=== PATIENT | female | born 1970 | race African-American/Black ===

== ENCOUNTER 2016-07-23 17:36 | Emergency (ER) | payer OTHER ==
[2016-07-23] MEDS ORDERED: IBUPROFEN 800 MG TABLET PO ONE (17:54)
--- NOTE | 2016-07-23 17:54 | ER Document Report ---
ED Medical Screen (RME) - General Stated Complaint: FACE PAIN Mode of Arrival: Ambulatory Information source: Patient Notes: Patient complains of headache, facial pain, generalized body aches. Patient reports symptoms 3 days. She does report cough and sneeze. hx: None I have greeted and performed a rapid initial assessment of this patient. A comprehensive ED assessment and evaluation of the patient, analysis of test results and completion of the medical decision making process will be conducted by additional ED providers. - Related Data Allergies/Adverse Reactions: acetaminophen [From Percocet] Allergy (Verified 12/21/11 18:41) oxycodone [Oxycodone] Allergy (Verified 12/21/11 18:41) oxycodone HCl [From Percocet] Allergy (Verified 12/21/11 18:41) Past Medical History GI Medical History: Reports: Hx Ulcer - stomach Past Surgical History: Reports: Hx Tubal Ligation - Immunizations Hx Diphtheria, Pertussis, Tetanus Vaccination: Yes Physical Exam - Neurological Cognition: Normal [place] Coma Scale Eye Opening: Spontaneous Kya Coma Scale Verbal: Oriented Kya Coma Scale Motor: Obeys Commands Kya Coma Scale Total: 15
--- NOTE | 2016-07-23 19:00 | ER Document Report ---
ED Flu Like - General Chief Complaint: Sinus Pain Stated Complaint: FACE PAIN Mode of Arrival: Ambulatory Notes: The patient is a 45-year-old female who presents with sinus congestion, frontal headache, subjective fevers and rhinorrhea for the past several days. 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 Denies cough, shortness of breath, chest pain, rash, neck stiffness, neuro symptoms or recent travel. TRAVEL OUTSIDE OF THE [place] IN LAST 30 DAYS: No - Related Data Allergies/Adverse Reactions: acetaminophen [From Percocet] Allergy (Verified 07/23/16 17:55) oxycodone [Oxycodone] Allergy (Verified 07/23/16 17:55) oxycodone HCl [From Percocet] Allergy (Verified 07/23/16 17:55) Past Medical History - General Information source: Patient - Social History Smoking Status: Current Every Day Smoker Chew tobacco use (# tins/day): No Frequency of alcohol use: None Drug Abuse: None Family History: Reviewed & Not Pertinent Patient has suicidal ideation: No Patient has homicidal ideation: No Renal/ Medical History: Denies: Hx Peritoneal Dialysis GI Medical History: Reports: Hx Ulcer - stomach Past Surgical History: Reports: Hx Tubal Ligation - Immunizations Hx Diphtheria, Pertussis, Tetanus Vaccination: Yes Review of Systems - Review of Systems Notes: REVIEW OF SYSTEMS: CONSTITUTIONAL: +subjective fevers, -chills EENT: -eye pain, -difficulty swallowing, +nasal congestion CARDIOVASCULAR: -chest pain, -syncope. RESPIRATORY: +cough, -SOB GASTROINTESTINAL: -abdominal pain, -nausea, -vomiting, -diarrhea GENITOURINARY: -dysuria, -hematuria MUSCULOSKELETAL: -back pain, -neck pain SKIN: -rash or skin lesions. HEMATOLOGIC: -easy bruising or bleeding. LYMPHATIC: -swollen, enlarged glands. NEUROLOGICAL: -altered mental status or loss of consciousness, +headache, - neurologic symptoms PSYCHIATRIC: -anxiety, -depression. ALL OTHER SYSTEMS REVIEWED AND NEGATIVE. Physical Exam - Vital signs Vitals: Temp Pulse Resp BP Pulse Ox 98.7 F 94 15 133/73 H 98 07/23/16 17:56 07/23/16 17:56 07/23/16 17:56 07/23/16 17:56 07/23/16 17:56 - Notes Notes: PHYSICAL EXAMINATION: GENERAL: Well-appearing, well-nourished and in no acute distress. HEAD: Atraumatic, normocephalic. EYES: Pupils equal round and reactive to light, extraocular movements intact, sclera anicteric, conjunctiva are normal. ENT: B/L maxillary and sinus tenderness, swollen nasal turbinates, nares patent , oropharynx clear without exudates. Moist mucous membranes. NECK: Normal range of motion, supple without lymphadenopathy LUNGS: Breath sounds clear to auscultation bilaterally and equal. No wheezes rales or rhonchi. HEART: Regular rate and rhythm without murmurs ABDOMEN: Soft, nontender, normoactive bowel sounds. No guarding, no rebound. No masses appreciated. EXTREMITIES: Normal range of motion, no pitting or edema. No cyanosis. NEUROLOGICAL: Cranial nerves grossly intact. Normal speech, normal gait. Normal sensory, motor, and reflex exams. PSYCH: Normal mood, normal affect. SKIN: Warm, Dry, normal turgor, no rashes or lesions noted. Course - Re-evaluation Re-evalutation: Patient appears very well. No respiratory distress and no fevers. Instructed patient about symptomatic treatment of her sinus congestion and follow-up with primary care physician. - Vital Signs Vital signs: Temp Pulse Resp BP Pulse Ox 98.7 F 94 15 133/73 H 98 07/23/16 17:56 07/23/16 17:56 07/23/16 17:56 07/23/16 17:56 07/23/16 17:56 Discharge - Discharge Clinical Impression: Sinus congestion URI (upper respiratory infection) Qualifiers: URI type: unspecified URI Qualified Code(s): J06.9 - Acute upper respiratory infection, unspecified Condition: Good Disposition: HOME, SELF-CARE Additional Instructions: Use Flonase and take Zyrtec to help out with your sinus congestion. Also use a sinus rinse, such as a NettiPot. Tylenol and Motrin for any fever or body aches. Get the flu shot. Sinusitis You have sinusitis, an infection of the sinus cavities of the face. The sinuses are air-filled chambers which open into the inside of the nose. Bacteria and pus fill a sinus, causing pain, drainage, and fever. Sinusitis is treated with antibiotics. Often, expectorants (to thin the sinus mucous) or decongestants (to reduce swelling) are prescribed as well. Healing requires seven to 10 days. Avoid chemical fumes, pollens, dusts, and smoke (especially cigarette smoke ). Keep the air humidified in your bedroom and work area and take plenty of liquids by mouth. This condition can be serious if the infection spreads. If your symptoms worsen, or if you develop severe headache, high fever, stiff neck, or a rash, you must call the doctor or return for re-evaluation. Prescriptions: Fluticasone Propionate [Flonase Nasal Bernie 50 Mcg/Bernie 16 gm] 2 sprays NASL Q12 #1 inhaler
[2016-07-23 20:43] VITALS: BP 128/72
== END 2016-07-23 19:52 | disposition home or self-care (01) ==
LOC: ER 17:36
DX: J06.9 Acute upper respiratory infection, unspecified (principal); R68.89 Other general symptoms and signs; R51 Headache; R50.9 Fever, unspecified; F17.200 Nicotine dependence, unspecified, uncomplicated; Z88.6 Allergy status to analgesic agent; Z98.51 Tubal ligation status
CPT/HCPCS: 99283

== ENCOUNTER 2016-11-28 12:30 | Emergency (ER) | payer OTHER ==
[2016-11-28] MEDS ORDERED: IBUPROFEN 600 MG TABLET PO ONE (15:24)
--- NOTE | 2016-11-28 15:27 | ER Document Report ---
ED Skin Rash/Insect Bite/Abscs - General Chief Complaint: Insect Bite Stated Complaint: WASP STING/HAND PAIN, SWELLING Time Seen by Provider: 11/28/16 15:14 Mode of Arrival: Ambulatory Information source: Patient Notes: 36-year-old female presents to ED for wasp sting to her left hand on Monday. She states she took [id number] allergy medicine on Monday but her hand continued to swell since Monday. She states she used some ice a little bit Monday but has not used it since then. She states she taken some ibuprofen off and on but not on a regular basis. Patient denies any shortness of breath difficulty breathing throat swelling or difficulty swallowing. TRAVEL OUTSIDE OF THE [place] IN LAST 30 DAYS: No - HPI Patient complains to provider of: Insect sting Onset: Last week Onset/Duration: Gradual, Persistent Quality of pain: Pressure Severity: Moderate Pain Level: 4 Skin Character: Erythema, Swelling, Other - wasp thing to left hand Identify cause: Yes Exacerbated by: Denies Relieved by: Denies Similar symptoms previously: No Recently seen / treated by doctor: No - Related Data Allergies/Adverse Reactions: acetaminophen [From Percocet] Allergy (Verified 07/23/16 17:55) oxycodone [Oxycodone] Allergy (Verified 07/23/16 17:55) oxycodone HCl [From Percocet] Allergy (Verified 07/23/16 17:55) Past Medical History - General Information source: Patient - Social History Smoking Status: Current Every Day Smoker Cigarette use (# per day): Yes - 14 or 15 cigarettes a day Chew tobacco use (# tins/day): No Smoking Education Provided: Yes - Less than 2 minutes Frequency of alcohol use: None Drug Abuse: None Occupation: accounts payable supervisor on third shift at the [employer] Lives with: Family Family History: Arthritis, CAD, COPD, CVA, DM, Hyperlipidemia, Hypertension, Malignancy Patient has suicidal ideation: No Patient has homicidal ideation: No - Past Medical History Cardiac Medical History: Reports: Hx Hypertension Pulmonary Medical History: Reports: None EENT Medical History: Reports: None Neurological Medical History: Reports: None Endocrine Medical History: Reports: None Renal/ Medical History: Reports: None Malignancy Medical History: Reports: None GI Medical History: Reports: Hx Ulcer - stomach Musculoskeltal Medical History: Reports None Skin Medical History: Reports Hx Eczema Psychiatric Medical History: Reports: None Traumatic Medical History: Reports: None Infectious Medical History: Reports: None Past Surgical History: Reports: Hx Tubal Ligation - Immunizations Hx Diphtheria, Pertussis, Tetanus Vaccination: Yes Review of Systems - Review of Systems Constitutional: No symptoms reported EENT: No symptoms reported Cardiovascular: No symptoms reported Respiratory: No symptoms reported Gastrointestinal: No symptoms reported Genitourinary: No symptoms reported Female Genitourinary: No symptoms reported Musculoskeletal: Other - wasp sting left hand Skin: No symptoms reported Hematologic/Lymphatic: No symptoms reported Neurological/Psychological: No symptoms reported Physical Exam - Vital signs Vitals: Temp Pulse Resp BP Pulse Ox 98.3 F 82 16 163/79 H 98 11/28/16 12:45 11/28/16 12:45 11/28/16 12:45 11/28/16 12:45 11/28/16 12:45 Interpretation: Normal - General General appearance: Appears well, Alert - HEENT Head: Normocephalic, Atraumatic Eyes: Normal Pupils: PERRL - Respiratory Respiratory status: No respiratory distress Chest status: Nontender Breath sounds: Normal Chest palpation: Normal - Cardiovascular Rhythm: Regular Heart sounds: Normal auscultation Murmur: No - Abdominal Inspection: Normal Distension: No distension Bowel sounds: Normal Tenderness: Nontender Organomegaly: No organomegaly - Back Back: Normal, Nontender - Extremities General upper extremity: Normal color, Normal ROM, Normal temperature General lower extremity: Normal inspection, Nontender, Normal color, Normal ROM , Normal temperature, Normal weight bearing. No: Jimena's sign Hand: Tender, No evidence of human bite, No evidence of FB, Swelling - Neurological Neuro grossly intact: Yes Cognition: Normal Orientation: AAOx4 Kya Coma Scale Eye Opening: Spontaneous Kya Coma Scale Verbal: Oriented [place] Coma Scale Motor: Obeys Commands [place] Coma Scale Total: 15 Speech: Normal Motor strength normal: LUE, RUE, LLE, RLE Sensory: Normal - Psychological Associated symptoms: Normal affect, Normal mood - Skin Skin Temperature: Warm Skin Moisture: Dry Skin Color: Normal Course - Vital Signs Vital signs: Temp Pulse Resp BP Pulse Ox 98.3 F 82 16 163/79 H 98 11/28/16 12:45 11/28/16 12:45 11/28/16 12:45 11/28/16 12:45 11/28/16 12:45 Discharge - Discharge Clinical Impression: Local reaction to bee sting Qualifiers: Encounter type: initial encounter Injury intent: accidental or unintentional Qualified Code(s): T63.441A - Toxic effect of venom of bees, accidental ( unintentional), initial encounter Condition: Stable Disposition: HOME, SELF-CARE Instructions: Family Physicians / Practices Additional Instructions: Insect Sting You've been stung by an insect. The venom can cause pain, redness, and swelling. Right after the sting, we sometimes use adrenaline to reduce the reaction to the venom. This also stops any allergic reaction. You should apply cold compresses, rest and elevate the affected part, and take antihistamines. A more severe, itchy red swelling sometimes develops the next day. This is a local allergic reaction to the venom. This local allergy isn't dangerous. We treat it with cortisone-type medicine and antihistamines. Sometimes we use antibiotics if we're worried about infection. If you develop a fever, chills, a red streak, or swollen glands in the area of the bite, infection may be starting. Return at once. Insect stings from the bee and hornet family may cause a severe allergic reaction. Symptoms include hoarseness, shortness of breath, general redness of the skin, general itching, or lightheadedness. If any of these symptoms occur, you'll be treated with adrenalin and cortisone-like steroids. You should carry an "Anaphylaxis Kit" with you in the summer months so you can administer these medications to yourself before getting emergency medical care. Ibuprofen Ibuprofen is an excellent, safe drug for pain control. In addition, it has potent antiinflammatory effects which are beneficial, especially in the treatment of injuries, arthritis, or tendonitis. It's best to take ibuprofen with food. Persons with ulcer disease or allergy to aspirin should notify their physician of this before taking ibuprofen. Take the medication exactly as prescribed. Don't take additional doses unless instructed to do so by your doctor. If you develop wheezing, shortness of breath, hives, faintness, stomach pain, vomiting, or dark black stools, return for re-evaluation at once. Ice & Elevation Apply ice packs frequently against the painful area. Many different schedules are recommended, such as "20 minutes on, 20 minutes off" or "one hour ice, two hours rest." If you need to work, you may need to go longer between ice treatments. You should plan to have the area ice packed AT LEAST one- fourth of the time. The ice should be applied over the wrap, tape, or splint, or over a layer of cloth -- not directly against the skin. Some ice bags have a built-in cloth and can be put directly on the skin. Your injured part should be elevated as much as possible over the next 48 hours. Try to keep the injury above the level of the heart. Avoid use of the injured area. Elevation and rest will decrease the swelling. Diphenhydramine The use of diphenhydramine (Benadryl) has been recommended to control allergic symptoms. The 25 mg strength is available over- the-counter, as well as the elixir. This antihistamine is used for many symptoms. It's useful for itching, watering eyes and nose, allergic swelling, hives, and insect stings. The medication can be repeated four times daily. Age Elixir (12.5 mg/tsp) 25 mg pill 1 yr 1/4 tsp 2-3 yr 1/2 tsp 4-8 yr 1 tsp 9-14 yr 2 tsp one tab adult 1-2 tabs Antihistamines may cause drowsiness, especially with the first dose. Do not operate machinery or drive while under the effects of the medication. Do not combine the medication with alcohol, or with any other medication without talking to your doctor. FOLLOW-UP CARE: If you have been referred to a physician for follow-up care, call the physician s office for an appointment as you were instructed or within the next two days. If you experience worsening or a significant change in your symptoms, notify the physician immediately or return to the Emergency Department at any time for re-evaluation. Prescriptions: Ibuprofen 600 mg PO Q8HP PRN #10 tablet PRN Reason: Forms: Elevated Blood Pressure, Smoking Cessation Education, Return to Work
[2016-11-28 15:52] VITALS: BP 152/88
== END 2016-11-28 15:40 | disposition home or self-care (01) ==
LOC: ER 12:30
DX: T63.441A Toxic effect of venom of bees, accidental (unintentional), initial encounter (principal); M79.89 Other specified soft tissue disorders; L53.0 Toxic erythema; F17.210 Nicotine dependence, cigarettes, uncomplicated; Z71.6 Tobacco abuse counseling; Z88.5 Allergy status to narcotic agent; Z88.6 Allergy status to analgesic agent
CPT/HCPCS: 99282

== ENCOUNTER 2017-03-26 01:09 | Emergency (ER) | payer OTHER ==
[2017-03-26 01:34] VITALS: BP 149/70
[2017-03-26] MEDS ORDERED: CLINDAMYCIN HCL 150 MG CAPSULE PO ONE (02:23)
[2017-03-26] MEDS ORDERED: IBUPROFEN 600 MG TABLET PO ONE (02:23)
--- NOTE | 2017-03-26 02:24 | ER Document Report ---
ED General - General Chief Complaint: Facial Swelling Stated Complaint: FACIAL SWELLING Time Seen by Provider: 03/26/17 02:06 Notes: Patient is a 46-year-old female without past medical history who presents with left-sided facial swelling and pain for the past 3 days. Patient notes that she has poor dentition throughout but has a fractured left molar which she believes has become infected causing the swelling. She does note a dull, constant, throbbing pain to the affected area. Eating or drinking worsens the pain. She has not tried anything to improve the pain. She does have a history of similar symptoms in the past. She has not seen a dentist regarding today's concerns. She denies any difficulty breathing, swallowing, fever, headache, altered mental status. TRAVEL OUTSIDE OF THE [place] IN LAST 30 DAYS: No - Related Data Allergies/Adverse Reactions: No Known Allergies Allergy (Unverified 03/26/17 01:32) Past Medical History - General Information source: Patient - Social History Smoking Status: Never Smoker Frequency of alcohol use: None Drug Abuse: None Family History: Arthritis, CAD, COPD, CVA, DM, Hyperlipidemia, Hypertension, Malignancy - Past Medical History Cardiac Medical History: Reports: Hx Hypertension Renal/ Medical History: Denies: Hx Peritoneal Dialysis GI Medical History: Reports: Hx Ulcer - stomach Skin Medical History: Reports Hx Eczema Past Surgical History: Reports: Hx Tubal Ligation - Immunizations Hx Diphtheria, Pertussis, Tetanus Vaccination: Yes Review of Systems - Review of Systems Notes: Constitutional: Negative for fever. HENT: Negative for sore throat. Positive for facial swelling and dental pain Eyes: Negative for visual changes. Cardiovascular: Negative for chest pain. Respiratory: Negative for shortness of breath. Gastrointestinal: Negative for abdominal pain, vomiting or diarrhea. Genitourinary: Negative for dysuria. Musculoskeletal: Negative for back pain. Skin: Negative for rash. Neurological: Negative for headaches, weakness or numbness. 10 point ROS negative except as marked above and in HPI. Physical Exam - Vital signs Vitals: Temp Pulse Resp BP Pulse Ox 98.7 F 80 16 149/70 H 99 03/26/17 01:32 03/26/17 01:32 03/26/17 01:32 03/26/17 01:32 03/26/17 01:32 Interpretation: Normal Notes: PHYSICAL EXAMINATION: GENERAL: Well-appearing, well-nourished and in no acute distress. HEAD: Atraumatic, normocephalic. EYES: Pupils equal round and reactive to light, extraocular movements intact, sclera anicteric, conjunctiva are normal. ENT: nares patent, oropharynx clear without exudates. Moist mucous membranes. Poor dentition throughout. Mild left-sided facial swelling over the maxilla NECK: Normal range of motion, supple without lymphadenopathy LUNGS: Breath sounds clear to auscultation bilaterally and equal. No wheezes rales or rhonchi. HEART: Regular rate and rhythm without murmurs ABDOMEN: Soft, nontender, normoactive bowel sounds. No guarding, no rebound. No masses appreciated. EXTREMITIES: Normal range of motion, no pitting or edema. No cyanosis. NEUROLOGICAL: No focal neurological deficits. Moves all extremities spontaneously and on command. PSYCH: Normal mood, normal affect. SKIN: Warm, Dry, normal turgor, no rashes or lesions noted. Course - Re-evaluation Re-evalutation: 03/26/17 02:20 Presentation is most consistent with likely an infected tooth. Airway is patent. Vitals within normal limits. Patient is able swallow without any difficulty. There is no significant facial swelling. No evidence of Mahad angina, apical abscess, or airway obstruction. Patient will be started on antibiotics. I've instructed to follow-up with dentistry as earliest ability for definitive management. At this time will discharge with return precautions and follow-up recommendations. Verbal discharge instructions given a the bedside and opportunity for questions given. Medication warnings reviewed. Patient is in agreement with this plan and has verbalized understanding of return precautions and the need for primary care follow-up in the next 24-72 hours. - Vital Signs Vital signs: Temp Pulse Resp BP Pulse Ox 98.7 F 80 16 149/70 H 99 03/26/17 01:32 03/26/17 01:32 03/26/17 01:32 03/26/17 01:32 03/26/17 01:32 Discharge - Discharge Clinical Impression: Dental infection, Left facial swelling Condition: Good Disposition: HOME, SELF-CARE Additional Instructions: You have been seen for dental pain. It is very important that you follow-up with a dentist for definitive care. Please return if you develop fever greater than 101, worsening of the swelling in your face, vomiting, difficulty breathing or swallowing, or any other symptoms that are concerning to you. For pain you should take ibuprofen 600 mg every 6 hours as needed. Prescriptions: Clindamycin HCl 300 mg PO TID #30 capsule
== END 2017-03-26 02:50 | disposition home or self-care (01) ==
LOC: ER 01:09
DX: K04.7 Periapical abscess without sinus (principal); R22.0 Localized swelling, mass and lump, head; I10 Essential (primary) hypertension
CPT/HCPCS: 99283

== ENCOUNTER 2017-09-11 09:21 | Emergency (ER) | payer OTHER ==
[2017-09-11] MEDS ORDERED: ASPIRIN 81 MG TABLET, CHEWABLE PO ONE (09:22)
[2017-09-11 09:50] LABS: ABSOLUTE EOSINOPHILS # (AUTO) 0.1 10^3/uL (0.0-0.6); ABSOLUTE LYMPHOCYTES (AUTO) 1.5 10^3/uL (0.5-4.7); ABSOLUTE MONOCYTES (AUTO) 0.5 10^3/uL (0.1-1.4); ABSOLUTE NEUT (AUTO) 2.6 10^3/uL (1.7-8.2); BASOPHILS % (AUTO) 0.9 % (0-2); EOSINOPHILS % (AUTO) 2.9 % (0-6); HEMATOCRIT 36.6 % (36.0-47.0); HEMOGLOBIN 11.9 g/dL (12.0-15.5); LYMPHOCYTES % (AUTO) 30.9 % (13-45); MEAN CORPUSCULAR HEMOGLOBIN 26.6 pg (27.0-33.4); MEAN CORPUSCULAR HGB CONC 32.6 g/dL (32.0-36.0); MEAN CORPUSCULAR VOLUME 82 fl (80-97); MONOCYTES % (AUTO) 10.1 % (3-13); PLATELET COUNT 273 10^3/uL (150-450); RED BLOOD COUNT 4.49 10^6/uL (3.72-5.28); RED CELL DISTRIBUTION WIDTH 15.7 % (11.5-14.0); SEGMENTED NEUTROPHILS % (AUTO) 55.2 % (42-78); TOTAL CELLS COUNTED % (AUTO) 100 %; WHITE BLOOD COUNT 4.8 10^3/uL (4.0-10.5)
--- NOTE | 2017-09-11 10:02 | ER Document Report ---
ED General - General Chief Complaint: Chest Pain Stated Complaint: CHEST PAIN Time Seen by Provider: 09/11/17 09:39 Mode of Arrival: Ambulatory Information source: Patient TRAVEL OUTSIDE OF THE [place] IN LAST 30 DAYS: No - HPI Patient complains to provider of: Chest pain Onset: This morning Onset/Duration: Sudden Quality of pain: Sharp, Stabbing Severity: Moderate Pain Level: 4 Exacerbated by: Movement Relieved by: Denies Similar symptoms previously: No Recently seen / treated by doctor: No Notes: Patient is a 47-year-old female presenting to the emergency room today complaining of sharp stabbing chest pain that started suddenly while she was reaching up in a cabinet for something, it lasted a few minutes and went away, then came back again, self resolved once again a second time, each time lasting just a few minutes, there is no associated diaphoresis or shortness of breath, no fevers, no nausea, vomiting or diarrhea, no history of similar symptoms previously, patient does report a nonproductive cough that occurred with the chest pain, she is a smoker - Related Data Allergies/Adverse Reactions: No Known Allergies Allergy (Unverified 03/26/17 01:32) Past Medical History - General Information source: Patient - Social History Smoking Status: Current Every Day Smoker Chew tobacco use (# tins/day): No Frequency of alcohol use: None Drug Abuse: None Family History: Arthritis, CAD, COPD, CVA, DM, Hyperlipidemia, Hypertension, Malignancy Patient has suicidal ideation: No Patient has homicidal ideation: No - Past Medical History Cardiac Medical History: Reports: Hx Hypertension Renal/ Medical History: Denies: Hx Peritoneal Dialysis GI Medical History: Reports: Hx Ulcer - stomach Skin Medical History: Reports Hx Eczema Past Surgical History: Reports: Hx Tubal Ligation - Immunizations Hx Diphtheria, Pertussis, Tetanus Vaccination: Yes Review of Systems - Review of Systems Constitutional: No symptoms reported. denies: Diaphoresis EENT: No symptoms reported Cardiovascular: No symptoms reported, Chest pain Respiratory: Cough. denies: Short of breath Gastrointestinal: No symptoms reported. denies: Nausea, Vomiting Genitourinary: No symptoms reported Female Genitourinary: No symptoms reported Musculoskeletal: No symptoms reported Skin: No symptoms reported Hematologic/Lymphatic: No symptoms reported Neurological/Psychological: No symptoms reported -: Yes All other systems reviewed and negative Physical Exam - Vital signs Vitals: Pulse Ox 99 04/09/18 09:21 Interpretation: Normal - General General appearance: Appears well, Alert - HEENT Head: Normocephalic, Atraumatic Eyes: Normal Pupils: PERRL - Respiratory Respiratory status: No respiratory distress Chest status: Tender - Tenderness to palpate over midsternum Breath sounds: Normal Chest palpation: Normal - Cardiovascular Rhythm: Regular Heart sounds: Normal auscultation Murmur: No - Abdominal Inspection: Normal Distension: No distension Bowel sounds: Normal Tenderness: Nontender Organomegaly: No organomegaly - Back Back: Normal, Nontender - Extremities General upper extremity: Normal inspection, Nontender, Normal color, Normal ROM , Normal temperature General lower extremity: Normal inspection, Nontender, Normal color, Normal ROM , Normal temperature, Normal weight bearing. No: Jimena's sign - Neurological Neuro grossly intact: Yes Cognition: Normal Orientation: AAOx4 Kya Coma Scale Eye Opening: Spontaneous [place] Coma Scale Verbal: Oriented Kya Coma Scale Motor: Obeys Commands [place] Coma Scale Total: 15 Speech: Normal Motor strength normal: LUE, RUE, LLE, RLE Sensory: Normal - Psychological Associated symptoms: Normal affect, Normal mood - Skin Skin Temperature: Warm Skin Moisture: Dry Skin Color: Normal Course - Re-evaluation Re-evalutation: 09/11/17 13:23 Patient resting comfortably, had periods of sharp stabbing chest pain this morning lasting a few minutes at a time and exacerbated by reaching into a cabinet above her, she has not had any further episodes while in the emergency department, evaluation here is unremarkable, therefore patient discharged with instructions for follow-up and advised to return if any worsening of symptoms or additional concerns, patient acknowledges understanding and agreement with this plan - Vital Signs Vital signs: Temp Pulse Resp BP Pulse Ox 98.2 F 20 155/95 H 99 09/11/17 09:33 09/11/17 11:01 09/11/17 11:01 09/11/17 11:01 - Laboratory Result Diagrams: 09/11/17 09:20 09/11/17 09:20 Laboratory results interpreted by me: 09/11/17 09/11/17 09:20 09:20 Hgb 11.9 L MCH 26.6 L RDW 15.7 H Chloride 108 H Glucose 116 H Total Bilirubin < 0.1 L Creatine Kinase 145 H - Diagnostic Test Radiology reviewed: Image reviewed, Reports reviewed - EKG Interpretation by Me EKG shows normal: Sinus rhythm Rate: Normal Rhythm: NSR Discharge - Discharge Clinical Impression: Chest wall pain Condition: Stable Disposition: HOME, SELF-CARE Instructions: Chest Wall Pain ([facility]) Additional Instructions: Follow up with your primary care provider in one to 2 days. Return to the emergency room immediately if symptoms worsen or any additional concerns. Forms: Smoking Cessation Education, Return to Work
[2017-09-11 10:10] LABS: ALANINE AMINOTRANSFERASE 11 U/L (9-52); ALBUMIN 3.6 g/dL (3.5-5.0); ALKALINE PHOSPHATASE 123 U/L (38-126); ANION GAP 9 (5-19); ASPARTATE AMINO TRANSFERASE 18 U/L (14-36); BLOOD UREA NITROGEN 10 mg/dL (7-20); CARBON DIOXIDE 25 mmol/L (22-30); CHLORIDE 108 mmol/L (98-107); CREATINE KINASE 145 U/L (30-135); GLUCOSE 116 mg/dL (75-110); POTASSIUM 4.3 mmol/L (3.6-5.0); SODIUM 141.8 mmol/L (137-145); TOTAL PROTEIN 6.8 g/dL (6.3-8.2)
[2017-09-11 10:15] LABS: BILIRUBIN,TOTAL < 0.1 mg/dL (0.2-1.3)
[2017-09-11 10:20] LABS: CREATINE KINASE MB 0.61 ng/mL (<4.55)
[2017-09-11 10:22] LABS: TROPONIN I < 0.012 ng/mL
--- NOTE | 2017-09-11 10:35 | RADIOLOGY REPORT (SQ) ---
EXAM DESCRIPTION: CHEST SINGLE VIEW COMPLETED DATE/TIME: 09/11/2017 9:37 am REASON FOR STUDY: cp COMPARISON: None. EXAM PARAMETERS: NUMBER OF VIEWS: One view. TECHNIQUE: Single frontal radiographic view of the chest acquired. RADIATION DOSE: NA LIMITATIONS: None. FINDINGS: LUNGS AND PLEURA: The lungs are well expanded and clear. MEDIASTINUM AND HILAR STRUCTURES: No masses. Contour normal. HEART AND VASCULAR STRUCTURES: The heart appears large, although accentuated somewhat by portable michelle hnique. BONES: No acute findings. HARDWARE: None in the chest. OTHER: No other significant finding. IMPRESSION: Cardiomegaly. COMMENT: Heart size is accentuated by portable technique. TECHNICAL DOCUMENTATION: JOB ID: [id number] [employer]- All Rights Reserved Reading location - IP/workstation name: [email or web address]
[2017-09-11 13:30] VITALS: BP 145/88
--- NOTE | 2017-09-11 13:34 | EKG REPORT ---
SEVERITY:- NORMAL ECG - SINUS RHYTHM : Confirmed by: Maxi Hilton MD 11-Sep-2017 13:34:01
== END 2017-09-11 13:42 | disposition home or self-care (01) ==
LOC: ER 09:21
DX: R07.89 Other chest pain (principal); R05 Cough; I10 Essential (primary) hypertension; F17.200 Nicotine dependence, unspecified, uncomplicated; Z82.49 Family history of ischemic heart disease and other diseases of the circulatory system
CPT/HCPCS: 36415; 71045; 80053; 82550; 82553; 84484; 85025; 93005; 93010; 99285

== ENCOUNTER → 2019-02-18 | Outpatient (CLI) | payer OTHER ==
[2019-02-18 08:35] LABS: ABSOLUTE EOSINOPHILS # (AUTO) 0.1 10^3/uL (0.0-0.6); ABSOLUTE LYMPHOCYTES (AUTO) 1.6 10^3/uL (0.5-4.7); ABSOLUTE MONOCYTES (AUTO) 0.4 10^3/uL (0.1-1.4); ABSOLUTE NEUT (AUTO) 2.4 10^3/uL (1.7-8.2); BASOPHILS % (AUTO) 0.4 % (0-2); EOSINOPHILS % (AUTO) 2.8 % (0-6); HEMATOCRIT 37.4 % (36.0-47.0); HEMOGLOBIN 12.2 g/dL (12.0-15.5); MEAN CORPUSCULAR HEMOGLOBIN 27.1 pg (27.0-33.4); MEAN CORPUSCULAR HGB CONC 32.5 g/dL (32.0-36.0); MEAN CORPUSCULAR VOLUME 83 fl (80-97); MONOCYTES % (AUTO) 8.9 % (3-13); PLATELET COUNT 234 10^3/uL (150-450); RED BLOOD COUNT 4.49 10^6/uL (3.72-5.28); RED CELL DISTRIBUTION WIDTH 14.9 % (11.5-14.0); SEGMENTED NEUTROPHILS % (AUTO) 52.9 % (42-78); TOTAL CELLS COUNTED % (AUTO) 100 %; WHITE BLOOD COUNT 4.6 10^3/uL (4.0-10.5)
[2019-02-18 08:52] LABS: ALBUMIN 3.7 g/dL (3.5-5.0); ALKALINE PHOSPHATASE 126 U/L (38-126); ANION GAP 9 (5-19); ASPARTATE AMINO TRANSFERASE 23 U/L (14-36); BILIRUBIN,TOTAL 0.2 mg/dL (0.2-1.3); BLOOD UREA NITROGEN 14 mg/dL (7-20); CALCIUM 8.5 mg/dL (8.4-10.2); CARBON DIOXIDE 24 mmol/L (22-30); CHLORIDE 109 mmol/L (98-107); CHOLESTEROL 165.62 mg/dL (0-200); GLUCOSE 114 mg/dL (75-110); POTASSIUM 3.8 mmol/L (3.6-5.0); TOTAL PROTEIN 7.1 g/dL (6.3-8.2); TRIGLYCERIDES 94 mg/dL (<150)
[2019-02-18 09:03] LABS: DIRECT LDL 115 mg/dL (<100)
== END ==
LOC: LAB 07:59
PROVIDERS: ATTEND Family Medicine Geriatric Medicine
DX: I10 Essential (primary) hypertension (principal); R73.03 Prediabetes; E66.3 Overweight; Z79.899 Other long term (current) drug therapy; J30.9 Allergic rhinitis, unspecified
CPT/HCPCS: 36415; 80053; 80061; 83036; 84443; 85025

== ENCOUNTER → 2019-02-27 | Outpatient (CLI) | payer OTHER | LOC: LAB 08:50 | PROVIDERS: ATTEND Family Medicine Geriatric Medicine | DX: R73.03 Prediabetes (principal); J30.9 Allergic rhinitis, unspecified; I10 Essential (primary) hypertension; E66.3 Overweight; Z79.899 Other long term (current) drug therapy | CPT/HCPCS: 36415; 82947; 82950 ==

== ENCOUNTER → 2019-08-12 | Outpatient (CLI) | payer OTHER ==
[2019-08-12 11:32] LABS: ANION GAP 8 (5-19); BLOOD UREA NITROGEN 12 mg/dL (7-20); CARBON DIOXIDE 25 mmol/L (22-30); CHLORIDE 105 mmol/L (98-107); CHOLESTEROL 197.71 mg/dL (0-200); GLUCOSE 101 mg/dL (75-110); POTASSIUM 4.3 mmol/L (3.6-5.0); TRIGLYCERIDES 121 mg/dL (<150)
[2019-08-12 11:43] LABS: DIRECT LDL 126 mg/dL (<100)
== END ==
LOC: OD 10:08
PROVIDERS: ATTEND Family Medicine Geriatric Medicine
DX: I10 Essential (primary) hypertension (principal); R73.01 Impaired fasting glucose; E78.5 Hyperlipidemia, unspecified; Z79.899 Other long term (current) drug therapy
CPT/HCPCS: 36415; 80048; 80061; 83036; 84460

== ENCOUNTER 2019-10-13 21:30 | Emergency (ER) | payer OTHER ==
[2019-10-13] MEDS ORDERED: ACETAMINOPHEN 325 MG TABLET PO ONE (22:39)
--- NOTE | 2019-10-13 22:41 | ER Document Report ---
ED Blood Pressure Problem - General Chief Complaint: High Blood Pressure Stated Complaint: HIGH BLOOD PRESSURE Time Seen by Provider: 10/13/19 22:29 Primary Care Provider: KENA VAZQUEZ MD [Primary Care Provider] - Follow up in 1 week Notes: Patient is a 49-year-old female who presents emergency department with a chief complaint of high blood pressure readings at home and a headache. Patient states that she takes losartan and has an as needed hydrochlorothiazide, 12.5 mg if her blood pressure is high at home. Patient states that she was going to cook big meal today cooking a big meal today for Mother's Day and noticed that her blood pressure was high at home. She also has a associated headache and prior to leaving for the emergency department, developed tingling in her left arm. TRAVEL OUTSIDE OF THE [place] IN LAST 30 DAYS: No - Related Data Allergies/Adverse Reactions: No Known Allergies Allergy (Unverified 03/26/17 01:32) Past Medical History - Social History Smoking Status: Current Every Day Smoker Chew tobacco use (# tins/day): No Frequency of alcohol use: None Drug Abuse: None Family History: Arthritis, CAD, COPD, CVA, DM, Hyperlipidemia, Hypertension, M alignancy Patient has homicidal ideation: No - Past Medical History Cardiac Medical History: Reports: Hx Hypertension Renal/ Medical History: Denies: Hx Peritoneal Dialysis GI Medical History: Reports: Hx Ulcer - stomach Skin Medical History: Reports Hx Eczema Past Surgical History: Reports: Hx Tubal Ligation - Immunizations Hx Diphtheria, Pertussis, Tetanus Vaccination: Yes Review of Systems - Review of Systems Notes: REVIEW OF SYSTEMS: CONSTITUTIONAL : Denies recent illness. Denies recent unintentional weight loss. Denies fever, chills, or sweats. EENT: Denies eye, ear, throat, or mouth pain, discharge, or symptoms. Denies nasal or sinus congestion. CARDIOVASCULAR: Denies chest pain. RESPIRATORY: Denies shortness of breath, cough, congestion, difficulty breathing, or wheezing. GASTROINTESTINAL: Denies nausea, vomiting, and diarrhea. Denies abdominal pain. Denies constipation. GENITOURINARY: Denies difficulty urinating, burning, blood in urine, urgency or frequency. MUSCULOSKELETAL: Denies neck and back pain. Denies joint pain or swelling. SKIN: Denies rash, itchiness, or lesions HEMATOLOGIC : Denies easy bruising or bleeding. LYMPHATIC: Denies swollen, painful, enlarged glands. NEUROLOGICAL: See HPI. PSYCHIATRIC: Denies stress, anxiety, alteration in sleep patterns, or depression. All other systems reviewed and negative. Physical Exam - Vital signs Vitals: Temp Pulse Resp BP Pulse Ox 98.6 F 93 16 207/99 H 98 10/13/19 21:36 10/13/19 21:36 10/13/19 21:36 10/13/19 21:36 10/13/19 21:36 - Notes Notes: PHYSICAL EXAMINATION: GENERAL: Appears well, healthy, well-nourished, no acute distress. HEAD: Normocephalic, atraumatic. EYES: PERRL, conjunctiva normal, all extraocular movements intact, sclera nonicteric ENT: Moist mucous membranes. NECK: Supple, no noticeable swelling, redness, rash. Normal range of motion. LUNGS: Equal breath sounds bilaterally and clear to auscultation. No wheezes rales or rhonchi. CARDIOVASCULAR: S1-S2, regular rate, regular rhythm. Radial pulses 2+, normal. ABDOMEN: Normoactive bowel sounds. Soft, nontender, no guarding, no rebound tenderness, and no masses palpated. EXTREMITIES: Normal strength and range of motion, no pitting or edema. No cyanosis. NEUROLOGICAL: Moves all extremities upon command. Strength 5/5 in all extremities. PSYCH: Normal mood, normal affect. SKIN: Warm, dry. No rash, lesions, ulcerations noted. Normal skin turgor. Course - Re-evaluation Re-evalutation: 10/14/19 00:36 Hematology is unremarkable with no leukocytosis or anemia noted. Chemistries are also unremarkable. Troponin is negative. Patient states that she feels better after receiving Tylenol. CT of the head is normal. Patient will follow- up with her primary care provider. Encouraged that she may need to take hydrochlorothiazide every day. Patient will recheck her blood pressure at home in 2 days. She is in agreement with this plan. Follow-up precautions were given. Verbal discharge instructions were given to the patient. They verbalized understanding. They are stable for discharge. - Vital Signs Vital signs: Temp Pulse Resp BP Pulse Ox 98.6 F 93 21 H 150/72 H 98 10/13/19 21:44 10/13/19 21:36 10/14/19 01:04 10/14/19 01:04 10/14/19 01:04 - Laboratory Result Diagrams: 10/13/19 23:44 10/13/19 23:44 Laboratory results interpreted by me: 10/13/19 10/13/19 23:44 23:44 Hct 35.7 L MCHC 36.1 H RDW 16.9 H Sodium 136.5 L Alkaline Phosphatase 146 H - EKG Interpretation by Me Additional EKG results interpreted by me: 10/14/19 00:39 Sinus rhythm. Rate 73. WI 168; QRS 84; QT 392; QTc 432. No ST elevations or depressions noted. No change noted compared to previous EKG done on 09/11/2017. Discharge - Discharge Clinical Impression: Essential hypertension Headache Qualifiers: Headache type: unspecified Headache chronicity pattern: acute headache Intractability: not intractable Qualified Code(s): R51 - Headache Condition: Stable Disposition: HOME, SELF-CARE Instructions: Hydrochlorothiazide ([facility]) Additional Instructions: You are seen today in the emergency department for a headache and high blood p ressure reading. Your labs and CT scan are very reassuring. Please follow-up with your primary care provider in regards to this visit. Check your blood pressure in 2 days and if the top number is higher than 135, take your hydrochlorothiazide daily. If you make this change, please notify your primary care doctor. Referrals: KENA VAZQUEZ MD [Primary Care Provider] - Follow up in 1 week
--- NOTE | 2019-10-13 23:30 | RADIOLOGY REPORT (SQ) ---
CT HEAD WITHOUT IV CONTRAST CLINICAL STATEMENT: headache; high blood pressure TECHNIQUE: Axial CT images from skull base to vertex without IV contrast. This exam was performed according to our departmental dose optimization program, and includes the following measures where applicable: automated exposure control, adjustment of the mAs and/or kVp according to patient size and/or exam, and an iterative reconstruction algorithm. COMPARISON: None. FINDINGS: There is no acute intracranial hemorrhage, mass, mass effect or abnormal extra-axial fluid collection. No evidence of an acute territorial infarct is identified. The ventricles are normal. Calvaria: The skull base and calvaria demonstrate no abnormality. Paranasal sinuses: Visualized portions of the orbits and paranasal sinuses are unremarkable. skull base: Unremarkable IMPRESSION: No acute intracranial abnormality.
[2019-10-13 23:56] LABS: ABSOLUTE BASOPHILS # (AUTO) 0.1 10^3/uL (0.0-0.2); ABSOLUTE EOSINOPHILS # (AUTO) 0.1 10^3/uL (0.0-0.6); ABSOLUTE LYMPHOCYTES (AUTO) 2.5 10^3/uL (0.5-4.7); ABSOLUTE MONOCYTES (AUTO) 0.4 10^3/uL (0.1-1.4); ABSOLUTE NEUT (AUTO) 2.7 10^3/uL (1.7-8.2); BASOPHILS % (AUTO) 1.5 % (0-2); EOSINOPHILS % (AUTO) 2.5 % (0-6); HEMATOCRIT 35.7 % (36.0-47.0); HEMOGLOBIN 12.9 g/dL (12.0-15.5); LYMPHOCYTES % (AUTO) 42.6 % (13-45); MEAN CORPUSCULAR HEMOGLOBIN 29.9 pg (27.0-33.4); MEAN CORPUSCULAR HGB CONC 36.1 g/dL (32.0-36.0); MEAN CORPUSCULAR VOLUME 83 fl (80-97); MONOCYTES % (AUTO) 7.2 % (3-13); PLATELET COUNT 261 10^3/uL (150-450); RED BLOOD COUNT 4.31 10^6/uL (3.72-5.28); RED CELL DISTRIBUTION WIDTH 16.9 % (11.5-14.0); SEGMENTED NEUTROPHILS % (AUTO) 46.2 % (42-78); TOTAL CELLS COUNTED % (AUTO) 100 %; WHITE BLOOD COUNT 5.8 10^3/uL (4.0-10.5)
[2019-10-14 00:13] LABS: ALBUMIN 3.9 g/dL (3.5-5.0); ALKALINE PHOSPHATASE 146 U/L (38-126); ANION GAP 7 (5-19); ASPARTATE AMINO TRANSFERASE 33 U/L (14-36); BILIRUBIN,TOTAL 0.2 mg/dL (0.2-1.3); BLOOD UREA NITROGEN 12 mg/dL (7-20); CALCIUM 9.1 mg/dL (8.4-10.2); CARBON DIOXIDE 28 mmol/L (22-30); CHLORIDE 102 mmol/L (98-107); GLUCOSE 100 mg/dL (75-110); POTASSIUM 3.8 mmol/L (3.6-5.0); TOTAL PROTEIN 7.4 g/dL (6.3-8.2)
[2019-10-14 01:10] VITALS: BP 150/72
--- NOTE | 2019-10-14 06:18 | EKG REPORT ---
SEVERITY:- NORMAL ECG - SINUS RHYTHM : Confirmed by: Maxi Hilton MD 14-Oct-2019 06:18:08
== END 2019-10-14 01:10 | disposition home or self-care (01) ==
LOC: ER 21:30
DX: I10 Essential (primary) hypertension (principal); R51 Headache; F17.200 Nicotine dependence, unspecified, uncomplicated; Z98.51 Tubal ligation status
CPT/HCPCS: 36415; 70450; 80053; 84484; 85025; 93005; 93010; 99284

== ENCOUNTER → 2019-10-22 | Outpatient (CLI) | payer OTHER ==
[2019-10-22 10:32] LABS: ABSOLUTE EOSINOPHILS # (AUTO) 0.1 10^3/uL (0.0-0.6); ABSOLUTE LYMPHOCYTES (AUTO) 1.6 10^3/uL (0.5-4.7); ABSOLUTE MONOCYTES (AUTO) 0.6 10^3/uL (0.1-1.4); ABSOLUTE NEUT (AUTO) 2.3 10^3/uL (1.7-8.2); EOSINOPHILS % (AUTO) 2.7 % (0-6); HEMATOCRIT 39.5 % (36.0-47.0); HEMOGLOBIN 13.2 g/dL (12.0-15.5); LYMPHOCYTES % (AUTO) 34.9 % (13-45); MEAN CORPUSCULAR HGB CONC 33.5 g/dL (32.0-36.0); MEAN CORPUSCULAR VOLUME 84 fl (80-97); MONOCYTES % (AUTO) 12.9 % (3-13); PLATELET COUNT 244 10^3/uL (150-450); RED BLOOD COUNT 4.73 10^6/uL (3.72-5.28); RED CELL DISTRIBUTION WIDTH 16.2 % (11.5-14.0); SEGMENTED NEUTROPHILS % (AUTO) 48.5 % (42-78); TOTAL CELLS COUNTED % (AUTO) 100 %; WHITE BLOOD COUNT 4.7 10^3/uL (4.0-10.5)
[2019-10-22 11:00] LABS: ANION GAP 7 (5-19); BLOOD UREA NITROGEN 18 mg/dL (7-20); CALCIUM 9.4 mg/dL (8.4-10.2); CARBON DIOXIDE 31 mmol/L (22-30); CHLORIDE 101 mmol/L (98-107); GLUCOSE 114 mg/dL (75-110); POTASSIUM 4.1 mmol/L (3.6-5.0)
== END ==
LOC: OD 09:45
PROVIDERS: ATTEND Family Medicine Geriatric Medicine
DX: I10 Essential (primary) hypertension (principal); N94.6 Dysmenorrhea, unspecified; Z79.899 Other long term (current) drug therapy
CPT/HCPCS: 36415; 80048; 85025

== ENCOUNTER → 2020-06-08 | Outpatient (CLI) | payer OTHER ==
[2020-06-08 10:10] LABS: ABSOLUTE EOSINOPHILS # (AUTO) 0.1 10^3/uL (0.0-0.6); ABSOLUTE LYMPHOCYTES (AUTO) 1.7 10^3/uL (0.5-4.7); ABSOLUTE MONOCYTES (AUTO) 0.5 10^3/uL (0.1-1.4); ABSOLUTE NEUT (AUTO) 1.7 10^3/uL (1.7-8.2); BASOPHILS % (AUTO) 0.7 % (0-2); EOSINOPHILS % (AUTO) 2.9 % (0-6); HEMATOCRIT 39.3 % (36.0-47.0); LYMPHOCYTES % (AUTO) 41.3 % (13-45); MEAN CORPUSCULAR HEMOGLOBIN 27.9 pg (27.0-33.4); MEAN CORPUSCULAR VOLUME 85 fl (80-97); MONOCYTES % (AUTO) 13.3 % (3-13); PLATELET COUNT 286 10^3/uL (150-450); RED BLOOD COUNT 4.65 10^6/uL (3.72-5.28); RED CELL DISTRIBUTION WIDTH 14.2 % (11.5-14.0); SEGMENTED NEUTROPHILS % (AUTO) 41.8 % (42-78); TOTAL CELLS COUNTED % (AUTO) 100 %; WHITE BLOOD COUNT 4.1 10^3/uL (4.0-10.5)
[2020-06-08 10:35] LABS: ALBUMIN 3.8 g/dL (3.5-5.0); ALKALINE PHOSPHATASE 135 U/L (38-126); ASPARTATE AMINO TRANSFERASE 28 U/L (14-36); BILIRUBIN,DIRECT 0.2 mg/dL (0.0-0.4); BILIRUBIN,TOTAL 0.4 mg/dL (0.2-1.3); BLOOD UREA NITROGEN 11 mg/dL (7-20); CALCIUM 9.1 mg/dL (8.4-10.2); CHOLESTEROL 206.27 mg/dL (0-200); GLUCOSE 110 mg/dL (75-110); POTASSIUM 4.5 mmol/L (3.6-5.0); TOTAL PROTEIN 7.4 g/dL (6.3-8.2); TRIGLYCERIDES 141 mg/dL (<150)
[2020-06-08 10:40] LABS: ANION GAP 5 (5-19); CARBON DIOXIDE 29 mmol/L (22-30); CHLORIDE 106 mmol/L (98-107)
[2020-06-08 10:46] LABS: DIRECT LDL 133 mg/dL (<100)
== END ==
LOC: OD 09:06
PROVIDERS: ATTEND Family Medicine Geriatric Medicine
DX: I10 Essential (primary) hypertension (principal); E78.5 Hyperlipidemia, unspecified; D25.9 Leiomyoma of uterus, unspecified; N95.1 Menopausal and female climacteric states; E66.3 Overweight; Z79.899 Other long term (current) drug therapy
CPT/HCPCS: 36415; 80053; 80061; 83036; 84443; 85025